=== PATIENT | female | born 2000 | race American Indian/Alaskan Native ===

== ENCOUNTER 2020-07-16 15:57 | Inpatient (IN) | payer OTHER ==
[2020-07-16] MEDS ORDERED: OXYTOCIN 10 UNIT/1 ML INJ IM PRN (17:22)
[2020-07-16] MEDS ORDERED: AMPICILLIN/NS 2 GM/100 ML 2 GM/100 ML BAG IV ONE (17:22)
[2020-07-16] MEDS ORDERED: TERBUTALINE 1 MG/1 ML INJ SUB-Q PRN (17:22)
[2020-07-16] MEDS ORDERED: fentaNYL 100 MCG/2 ML INJ IV PRN (17:22)
[2020-07-16] MEDS ORDERED: MINERAL OIL 30 ML ORAL LIQD PO PRN (17:22)
[2020-07-16] MEDS ORDERED: LIDOCAINE (2%) 20 MG/1 ML VIAL 20 ML MDV INFILTRATI ONE (17:22)
[2020-07-16] MEDS ORDERED: ePHEDrine SULFATE 50 MG/1 ML INJ IV PRN ×2 (17:22→22:18)
[2020-07-16 17:38] LABS: Hematocrit 36.9 % (30.3-42.9); Hemoglobin 12.8 gm/dl (10.1-14.3); Mean Corpuscular HGB Conc 35 % (30-34); Mean Corpuscular Volume 87 fl (79-97); Platelet Count 187 K/mm3 (140-440); Red Blood Count 4.24 M/mm3 (3.65-5.03); Red Cell Distribution Width 13.8 % (13.2-15.2)
[2020-07-16] MEDS: LACTATED RINGERS 1,000 ML IV SCH ×2 (17:55→18:58)
[2020-07-16] MEDS ORDERED: OXYTOCIN DRIP 30 UNITS/500 ML BAG IV SCH (18:00)
--- NOTE | 2020-07-16 18:53 | History and Physical Report ---
History of Present Illness Date of examination: 07/16/20 Date of admission: 07/16/20 15:58 Chief complaint: C/o SROM with cl fluid. Admits to active FM and denies uc. History of present illness: 20 y/o AA female presents to [facility] with c/o SROM cl fluid @ 2:30 pm. She initiated her pnc at [facility] at 9 4/7 wks. Preg has been uneventful. Hx reveals anemia, + GBS, sickle cell trait, uti, and Varicella NI. Pt was admitted to L&D for an augmentation of labor. Past History Past Medical History: other (anemia, sickle cell trait + GBS, Varicella NI, uti) Past Surgical History: no surgical history Family/Genetic History: none Social history: single - Obstetrical History Expected Date of Delivery: 07/17/20 Actual Gestation: 39 Week(s) 6 Day(s) : 1 Para: 0 Medications and Allergies Allergies Allergy/AdvReac Type Severity Reaction Status Date / Time No Known Allergies Allergy Verified 07/16/20 18:38 Home Medications Medication Instructions Recorded Confirmed Last Taken Type Ferrous Sulfate [Iron 325 MG] 325 mg PO DAILY 07/16/20 07/16/20 07/15/20 09:00 History Vit-Fe Fumar-FA [ 1 tab PO QDAY 07/16/20 07/16/20 07/15/20 09:00 History Vitamin] Active Meds: Active Medications Butorphanol Tartrate (Stadol) 2 mg IV Q2H PRN PRN Reason: Pain , Severe (7-10) Ephedrine Sulfate (Ephedrine Sulfate) 10 mg IV Q2M PRN PRN Reason: Hypotension Fentanyl (Sublimaze) 100 mcg IV Q2H PRN PRN Reason: Pain,Severe (7-10) LABOR PAIN Oxytocin/Sodium Chloride (Pitocin/Ns 30 Unit/500ml) 30 units in 500 mls @ 2 mls/hr IV TITR DANICA; Protocol Last Admin: 07/16/20 17:57 Dose: 2 ml/hr, 2 mls/hr Documented by: Lactated Ringer's (Lactated Ringers) 1,000 mls @ 125 mls/hr IV DIRECT DANICA Last Admin: 07/16/20 17:55 Dose: 125 mls/hr Documented by: Mineral Oil (Mineral Oil) 30 ml PO QHS PRN PRN Reason: Constipation Oxytocin (Pitocin) 10 unit IM ONCE PRN PRN Reason: Uterine Bleeding Terbutaline Sulfate (Brethine) 0.25 mg SUB-Q ONCE PRN PRN Reason: Hyperstimulation/Hypertonicity Review of Systems All systems: negative Eyes: deferred Ears, nose, mouth and throat: deferred Breasts: normal - Vital Signs Vital signs: Vital Signs Pulse BP 101 H 134/83 07/16/20 16:46 07/16/20 16:46 Temp Pulse Resp BP Pulse Ox 99 F 104 H 18 147/82 99 07/16/20 18:31 07/16/20 18:43 07/16/20 18:31 07/16/20 18:40 07/16/20 18:43 - Physical Exam Breasts: Positive: normal Cardiovascular: Regular rate Lungs: Positive: Clear to auscultation Abdomen: Positive: normal appearance, soft, normal bowel sounds, other (gravid) Genitourinary (Female): Positive: normal external genitalia, normal perenium Vulva: both: normal Vagina: Positive: normal moisture Uterus: Positive: enlarged, normal contour, other (gravid) Adnexa: both: normal Anus/Rectum: Positive: normal perianal skin Extremities: Positive: normal - Obstetrical FHR: auscultation normal, category 1 Uterine Contraction Monitor Mode: External Cervical Dilatation: 2 Cervical Effacement Percentage: 70 station: -2 Uterine Contraction Frequency (min): irreg Uterine Contraction Pattern: Irregular Uterine Tone Measurement Phase: Resting Uterine Contraction Intensity: Mild Results Result Diagrams: 07/16/20 16:55 Abnormal lab results 07/16/20 Range/Units 16:55 MCHC 35 H (30-34) % All other labs normal. Assessment and Plan A: IUP@ 39.6 wks SROM cl fluid GBS pos Anemia Varicella NI SS trait P: Admit to L&D Continuous monitoring GBS prophylaxis Varicella vaccine pp Pain med/Epidural prn Anticipate - Patient Problems (1) Term Current Visit: Yes Status: Acute (2) Positive GBS test Current Visit: Yes Status: Acute (3) Anemia Current Visit: Yes Status: Acute (4) Maternal varicella, non-immune Current Visit: Yes Status: Acute (5) Sickle cell trait Current Visit: Yes Status: Acute
[2020-07-16] MEDS ORDERED: NALOXONE 2 MG/2 ML INJ IV PRN (22:18)
[2020-07-16] MEDS ORDERED: DEXMEDETOMIDINE 200 MCG/2 ML VIAL IV ONE (22:24)
[2020-07-16] MEDS: AMPICILLIN/NS 1 GM/50 ML 1 GM/50 ML BAG IV SCH (22:48)
[2020-07-16] MEDS: BUTORPHANOL 2 MG/1 ML INJ IV PRN (22:52)
[2020-07-16] MEDS ORDERED: fentaNYL-BUPIV 2 MCG/ML-0.125% 200 MCG/100 ML BAG EPIDURAL SCH (23:00)
[2020-07-17] MEDS: LACTATED RINGERS 1,000 ML IV SCH ×3 (01:14→12:37)
[2020-07-17] MEDS: AMPICILLIN/NS 1 GM/50 ML 1 GM/50 ML BAG IV SCH ×6 (02:00→23:04)
[2020-07-17] MEDS: BUTORPHANOL 2 MG/1 ML INJ IV PRN (06:43)
[2020-07-17] MEDS ORDERED: DEXMEDETOMIDINE 200 MCG/2 ML VIAL IV ONE (09:49)
[2020-07-17] MEDS ORDERED: ePHEDrine SULFATE 50 MG/1 ML INJ IV PRN (10:27)
[2020-07-17] MEDS ORDERED: NALOXONE 2 MG/2 ML INJ IV PRN (10:27)
--- NOTE | 2020-07-17 10:29 | Anesthesia Consultation ---
Anesthesia Consult and Med Hx Date of service: 07/17/20 - Airway Anesthetic Teeth Evaluation: Good ROM Head & Neck: Adequate Mental/Hyoid Distance: Adequate Mallampati Class: Class I Intubation Access Assessment: Good - Pulmonary Exam CTA: Yes - Cardiac Exam Cardiac Exam: RRR - Pre-Operative Health Status ASA Pre-Surgery Classification: ASA2 Proposed Anesthetic Plan: Epidural - Pulmonary Hx Smoking: No Hx Asthma: No Hx Respiratory Symptoms: No SOB: No COPD: No Home Oxygen Therapy: No Hx Pneumonia: No Hx Sleep Apnea: No - Cardiovascular System Hx Hypertension: No Hx Coronary Artery Disease: No Hx Heart Attack/AMI: No Hx Angina: No Hx Percutaneous Transluminal Coronary Angioplasty (PTCA): No Hx Cardia Arrhythmia: No Hx Pacemaker: No Hx Internal Defibrillator: No Hx Valvular Heart Disease: No Hx Heart Murmur: No Hx Peripheral Vascular Disease: No - Central Nervous System Hx Neuromuscular Disorder: No Hx Seizures: No CVA: No Hx Back Pain: No Hx Psychiatric Problems: No - Gastrointestinal Hx Ulcer: No Hx Gastroesophageal Reflux Disease: No - Endocrine Hx Renal Disease: No Hx End Stage Renal Disease: No Hx Cirrhosis: No Hx Liver Disease: No Hx Insulin Dependent Diabetes: No Hx Non-Insulin Dependent Diabetes: No Hx Thyroid Disease: No Hx Hypothyroidism: No Hx Hyperthyroidism: No - Hematic Hx Anemia: No Hx Sickle Cell Disease: No - Other Systems Hx Alcohol Use: No Hx Substance Use: No Hx Cancer: No Hx Obesity: Yes
--- NOTE | 2020-07-17 10:32 | Progress Note ---
Labor Epidural - Labor Epidural Start Time: 10:05 Stop Time: 10:13 Performed by:: JENNIFER SÁNCHEZ Procedure: Patient is requesting a laboring epidural for laboring pain. Patient IDed, H&P reviewed, all questions and concerns were answered, and consent was signed. Timeout was performed at bedside. Patient in sitting position. Sterile prep and drape was performed. [5] ml of 1% lidocaine skin wheal at L[3]- L [4]. 18- gauge Tuohy epidural needle was advanced to loss of resistance with air technique to 7cm. Negative CSF negative blood via Tuohy needle. #27g Spinal needle clear, free flowing CSF, Pecedex 10 mcg. Epidural catheter advanced to [12] centimeters. [negative] Aspiration [negative] test dose. Sterile dressing applied. Patient tolerated procedure.
[2020-07-17] MEDS ORDERED: fentaNYL-BUPIV 2 MCG/ML-0.125% 200 MCG/100 ML BAG EPIDURAL SCH (11:00)
[2020-07-17] MEDS ORDERED: FAMOTIDINE 20 MG/2 ML INJ IV ONE ×2 (13:07→13:14)
[2020-07-17] MEDS ORDERED: BICITRA ORAL LIQD 30ML PO ONE (13:07)
[2020-07-17] MEDS ORDERED: METOCLOPRAMIDE 10 MG/2 ML INJ IV ONE (13:07)
[2020-07-17] MEDS ORDERED: NALOXONE 0.4 MG/1 ML INJ IV PRN ×3 (13:08→16:21)
[2020-07-17] MEDS ORDERED: HYDROmorphone 1 MG/1 ML INJ IV PRN (13:08)
[2020-07-17] MEDS ORDERED: ONDANSETRON 4 MG/2 ML INJ IV PRN ×3 (13:08→16:21)
--- NOTE | 2020-07-17 13:08 | Anesthesia Day of Surgery ---
Anesthesia Day of Surgery - Day of Surgery Patient Examined: Yes Patient H&P Reviewed: Yes Patient is NPO: Yes Beta Blockers: No Cardiac Clearance: No Pulmonary Clearance: No Aj's Test: N/A
[2020-07-17] MEDS ORDERED: ceFAZolin/Water 2 GM/20 ML 2 GM/20 ML SYRINGE IV ONE (13:11)
[2020-07-17] MEDS ORDERED: BICITRA ORAL LIQD 30ML ONE (13:14)
[2020-07-17] MEDS ORDERED: METOCLOPRAMIDE 10 MG/2 ML INJ ONE (13:14)
[2020-07-17] MEDS ORDERED: LIDOCAINE MPF (2%) 20 MG/1 ML VIAL 5 ML ONE (13:18)
--- NOTE | 2020-07-17 13:24 | Event Note ---
Date: 07/17/20 Prolonged deceleration for over 4 minutes minimal cervical change plan for operative delivery informed consent obtained NPO, business integration manager to OR for procedure CNikia Ayala MD
[2020-07-17] MEDS ORDERED: ceFAZolin/STERILE WATER 2 GM/20 ML SYRINGE IV ONE (13:55)
[2020-07-17] MEDS ORDERED: LACTATED RINGERS 1,000 ML IV SCH (14:00)
[2020-07-17] MEDS ORDERED: OXYTOCIN DRIP 30 UNITS/500 ML BAG IV SCH ×2 (14:00→17:00)
[2020-07-17] MEDS ORDERED: WATER FOR IRRIG STERILE 1,500 ML BOTTLE IR ONE (14:00)
[2020-07-17] MEDS ORDERED: SODIUM CHLORIDE 0.9% 500 ML 500 ML ONE (14:00)
[2020-07-17] MEDS ORDERED: ceFAZolin/Water 2 GM/20 ML 2 GM/20 ML SYRINGE IV NR (14:00)
[2020-07-17] MEDS ORDERED: ONDANSETRON 4 MG/2 ML INJ ONE (14:00)
[2020-07-17] MEDS ORDERED: SODIUM CHLORIDE 0.9% IRR 1,500 ML BOTTLE IR ONE (14:00)
[2020-07-17] MEDS ORDERED: OXYTOCIN 10 UNIT/1 ML INJ ONE ×2 (14:11→14:18)
[2020-07-17] MEDS ORDERED: METHYLERGONOVINE MALEATE 0.2 MG/ML VIAL IM ONE (14:14)
[2020-07-17] MEDS ORDERED: CARBOPROST TROMETHAMINE 250 MCG/1 ML INJ IM ONE (14:24)
[2020-07-17] MEDS ORDERED: propofoL 200 MG/20 ML VIAL IV ONE (14:33)
[2020-07-17] MEDS ORDERED: ROCURONIUM 50 MG/5 ML INJ IV ONE (14:40)
[2020-07-17] MEDS ORDERED: PHENYLEPHRINE/NS 1,000 MCG/10 ML SYRINGE (OR USE) IV ONE ×2 (14:40→15:36)
[2020-07-17] MEDS ORDERED: dexAMETHasone 20 MG/5 ML VIAL ONE (14:40)
[2020-07-17] MEDS ORDERED: fentaNYL 250 MCG/5 ML INJ ONE (14:41)
[2020-07-17] MEDS ORDERED: ceFAZolin 1 GM VIAL ONE (15:09)
[2020-07-17] MEDS ORDERED: MIDAZOLAM 2 MG/2 ML INJ ONE (15:11)
[2020-07-17] MEDS ORDERED: NEOSTIGMINE 10MG/10 ML INJ MDV ONE (15:59)
[2020-07-17] MEDS ORDERED: GLYCOPYRROLATE 0.4 MG/2 ML INJ ONE (15:59)
[2020-07-17] MEDS ORDERED: HYDROmorphone 1 MG/1 ML INJ ONE ×2 (16:14)
--- NOTE | 2020-07-17 16:16 | Procedure Note ---
OB Delivery Note - Section Preop diagnosis: nonreassuring FHR tracing Postop diagnosis: same section procedure: other ( hysterectomy ) Disposition: PACU Complications: uterine atony (requiring hysterectomy) Narrative: PREOPERATIVE DIAGNOSES: 1. Intrauterine gestation at 40.0 weeks,NRFHT,PPROM 2. Uterine atony. POSTOPERATIVE DIAGNOSES: 1. Intrauterine gestation at 40.0 weeks with suspected chorioamnionitis 2. Uterine atony. 3. Delivered. OPERATIONS PERFORMED: 1. Primary low transverse section. 2. Supracervical abdominal hysterectomy. SURGEON: Dr Delmy Ayala OFFICE MACHINE INSPECTOR: Dr Gil Veras ANESTHESIA: Epidural and general. ESTIMATED BLOOD LOSS:2000 mL. IV FLUIDS: 2000 mL crystalloid, 2 units PRBCs URINE OUTPUT: 600mL, clear COUNTS: Correctx2 INDICATIONS FOR OPERATION: The patient is a 20 year-old primigravida at 40.0 weeks gestation who presented with spontaneous onset of labor and PPROM. There was intolerance to labor with NRFHT and the decision was made for operative delivery. The Indications, risks, and benefits were discussed with the patient and her spouse. These risks include, but are not limited to bleeding, infection, damage to abdominal or pelvic organs or possible hemorrhage requiring transfusion. Consent was obtained. OPERATIVE FINDINGS: Viable male weigh [id number] with score of 9 at one minute and 9 at five minutes. Uterus was atonic. Tubes and ovaries appeared normal.Suspected chorioamnionitis: placenta sent topathology for analysis. DESCRIPTION OF OPERATION: After induction of epidural anesthesia, the patient was placed in the supine position with left lateral uterine displacement. The patient was prepped and draped in the usual sterile fashion. A Pfannenstiel skin incision was made with a scalpel and extended laterally sharply to the fascia, which was incised in the midline.The fascial incision was extended bilaterally. The fascia was bluntly and sharply dissected from the underlying rectus muscles. The recti were bluntly divided. The peritoneum was tented upward and entered sharply. The incision was extended superiorly and inferiorly. The vesicouterine peritoneum was tented upward and entered sharply. Then, the incision was extended bilaterally. A bladder flap was created by blunt dissection and protected behind the bladder blade. A low transverse uterine incision was made with a scalpel and extended bilaterally bluntly. The vertex was elevated to the level of the incision, where it was delivered with the aid of fundal pressure. The nose and mouth was bulb suctioned. The remainder of the infant was delivered atraumatically. The cord was doubly clamped and cut. The infant was handed to the awaiting nursery staff. The uterus was exteriorized and wrapped with a moist sponge. A dry sponge was used to curette the endometrial cavity. The uterus was vigorously massaged, as it was noted to be atonic. Methergine 0.2mg IMx2 doses, Hemabate 250mcg x1 dose, oxytocin 10mu IMx1 dose and cytotec 1mg NE given to control atony with no success. The uterine incision was closed in two layers using 0 chromic suture in a running locked fashion with second layer in an imbricating fashion. Additional hztsoc-zq-lhvfh suture was used as needed for hemostasis Uterine massage was continued with no response. In fact, the uterus was noted to be boggier and more atonic and was enlarging in size. Continued uterus massage revealed no response.The uterus became more and more boggy and persistently enlarged. The uterine massage and direct uterine pressure were continued throughout. Decision was made to proceed with a B-Porras suture. This was performed initially using number 1 Vicryl. As the suture was cinched down, it tore through the lower uterine segment. It was tied in situ and a frvytm-oa-vzqph suture was used for hemostasis at the site where the suture had torn through. The uterus continued to enlarge despite all attempts to control atony. At this point total EBL was 1300ml. Patient was hemodynamically stable. At this time, decision was made to proceed with hysterectomy for persistent uterine atony unresponsive to conservative management. Dr Veras was called to the OR immediately. The abdominal incision was extended cephalad to above the umbilicus with a scalpel. The left round ligament was grasped, doubly clamped, cut, and doubly ligated. Note that throughout the hysterectomy, 0 Vicryl sutures were used and all pedicles were doubly ligated. The right round ligament was similarly clamped, cu t, and ligated. The left utero-ovarian ligament was then doubly clamped, cut, and doubly ligated. Additional clamps were placed down the mesosalpinx to the level of the uterine vessels. A similar procedure was performed on the right utero-ovarian ligament and along the right mesosalpinx and broad ligament, to the level of the uterine vessels. The left uterine artery was then clamped, cut, and doubly ligated. A similar procedure was performed on the right uterine artery. Decision was made at this point to perform a supracervical hysterectomy. Large Aura clamps are placed across the right and left sides of the cervix, meeting at the midpoint. A scissors was used to excise the uterus, which was passed off the operative field. Interrupted [id number]-uq-wscti sutures of 0 Vicryl were used to close the cervix. Once the cervical closure was hemostatic, the remaining pedicles were re- examined. The pelvis was irrigated. Hemostasis of all pedicles and the cervical closure was reconfirmed. Hemoblast was placed over the cervical stump to serve as an adhesion barrier. The vertical incision was closed with 0 loop PDS- to encompass all layers of the anterior abdominal wall. The pfannensteil fascia was closed using 0 Vicryl in a running fashion. The subcuticular structures were closed with )-vicryl interrupted sutures and the pfannensteil incisionclsoed with monocryl and the vertical extension skin closed with stapels. The skin was irrigated. Hemostasis was achieved with electrocautery. A sterile dressing was applied. The patient did receive 2 grams of Ancef preoperatively and 1gm intrao peratively as well as two units PRBC's. She will recover in PACU and CCU. Dr Verdugo consulted intraoperatively. DISPOSITION: The patient returned to the postanesthesia care unit extubated and in stable condition. Her partner was notified of the indication for the procedure, her stable condition and the plan of care fo recovery. All sponge, needle and instrument counts correctx2 EBL 2000ml. Lisa Ayala MD
[2020-07-17] MEDS ORDERED: LANOLIN/ZINC/DIMETHICONE (LANSINOH) 7 GM TP PRN (16:21)
[2020-07-17] MEDS ORDERED: MORPHINE 2 MG/1 ML INJ IV PRN (16:21)
[2020-07-17] MEDS ORDERED: ACETAMINOPHEN 325 MG TAB PO PRN (16:21)
[2020-07-17] MEDS ORDERED: WITCH HAZEL/ GLYCERIN PAD TP PRN (16:21)
[2020-07-17] MEDS ORDERED: HYDROcodone/ACETAMINOPHEN 5-325 MG TAB PO PRN (16:21)
[2020-07-17] MEDS ORDERED: MAGNESIUM HYDROXIDE (MOM) ORAL LIQD UDC PO PRN (16:21)
[2020-07-17] MEDS ORDERED: diphenhydrAMINE 50 MG/ML VIAL IV PRN (16:21)
[2020-07-17] MEDS ORDERED: PROMETHAZINE 25 MG RECT SUPP PR PRN (16:21)
[2020-07-17] MEDS ORDERED: MORPHINE 4 MG/1 ML INJ IV PRN (16:21)
[2020-07-17] MEDS ORDERED: METOCLOPRAMIDE 10 MG/2 ML INJ IV PRN (16:21)
[2020-07-17 17:00] LABS: Hematocrit 38.2 % (30.3-42.9); Hemoglobin 13.1 gm/dl (10.1-14.3)
[2020-07-17] MEDS ORDERED: LACTATED RINGERS 1,000 ML ONE (17:05)
[2020-07-17] MEDS: HYDROmorphone/NS 6 MG/30 ML PCA INJ IV SCH (19:28)
[2020-07-18] MEDS: AMPICILLIN/NS 1 GM/50 ML 1 GM/50 ML BAG IV SCH ×3 (02:00→10:07)
[2020-07-18] MEDS: LACTATED RINGERS 1,000 ML IV SCH (03:01)
[2020-07-18 06:01] LABS: Hematocrit 28.6 % (30.3-42.9); Hemoglobin 10.1 gm/dl (10.1-14.3)
--- NOTE | 2020-07-18 09:02 | Consultation ---
History of Present Illness - Reason for Consult Consult date: 07/18/20 Post Management Requesting physician: EDI JUDGE - History of Present Illness 20 y/o female who developed hemorrhage post , had to have hysterectomy for life saving bleeding. Called by OB to watch patient in ICU overnight. HgB has been stable, no acute evidence of active bleeding. Hgb this am is 10. Patient awake and alert. On [employer] Pump. Per patient pad only changed once. abdominal dressing is good. Remainder is negative. Past History Social history: single Medications and Allergies Allergies Allergy/AdvReac Type Severity Reaction Status Date / Time No Known Allergies Allergy Verified 07/16/20 18:38 Home Medications Medication Instructions Recorded Confirmed Last Taken Type Ferrous Sulfate [Iron 325 MG] 325 mg PO DAILY 07/16/20 07/16/20 07/15/20 09:00 History Vit-Fe Fumar-FA [ 1 tab PO QDAY 07/16/20 07/16/20 07/15/20 09:00 History Vitamin] Active Meds: Active Medications Acetaminophen (Tylenol) 650 mg PO Q4H PRN PRN Reason: Fever >100.5/AYOUB Hydrocodone Bitart/Acetaminophen ([place] 5/325) 1 each PO Q6H PRN PRN Reason: Pain, Moderate (4-6) Butorphanol Tartrate (Stadol) 2 mg IV Q2H PRN PRN Reason: Pain , Severe (7-10) Last Admin: 07/17/20 06:43 Dose: 2 mg Documented by: Diphenhydramine HCl (Benadryl) 25 mg IV Q4H PRN PRN Reason: Itching Ephedrine Sulfate (Ephedrine Sulfate) 10 mg IV Q2M PRN PRN Reason: Hypotension Fentanyl (Sublimaze) 100 mcg IV Q2H PRN PRN Reason: Pain,Severe (7-10) LABOR PAIN Hydromorphone HCl (Dilaudid) 0.5 mg IV Q5M PRN PRN Reason: BREAK Hydromorphone/Sodium Chloride (Dilaudid Model Maker Plaster 6mg/30ml) 0 mg IV DIRECT DANICA; Protocol Last Admin: 07/17/20 19:28 Dose: 0.2 mg Documented by: Lactated Ringer's (Lactated Ringers) 1,000 mls @ 125 mls/hr IV DIRECT DANICA Last Admin: 10/10/20 03:01 Dose: 125 mls/hr Documented by: Ampicillin Sodium (Ampicillin/Ns 1 Gm/50 Ml) 1 gm in 50 mls @ 100 mls/hr IV Q4HR DANICA; Protocol Last Admin: 07/18/20 06:19 Dose: 100 mls/hr Documented by: Fentanyl/Bupivacaine/Sodium Chlor (Fentanyl-Bupiv 2 Mcg/Ml-0.125%) 200 mcg in 100 mls @ 12 mls/hr EPIDURAL TITR DANICA; Protocol Lactated Ringer's (Lactated Ringers) 1,000 mls @ 2,250 mls/hr IV PREOP DANICA Stop: 07/18/20 14:27 Oxytocin/Sodium Chloride (Pitocin/Ns 30 Unit/500ml) 30 units in 500 mls @ 40 mls/hr IV TITR DANICA; Protocol Magnesium Hydroxide (Milk Of Magnesia) 30 ml PO QHS PRN PRN Reason: Constip Unrelieved By Senna Metoclopramide HCl (Reglan) 10 mg IV Q6H PRN PRN Reason: N/V if NPO. Mineral Oil (Mineral Oil) 30 ml PO QHS PRN PRN Reason: Constipation Morphine Sulfate (Morphine) 2 mg IV Q4H PRN PRN Reason: Pain, Moderate (4-6) Morphine Sulfate (Morphine) 4 mg IV Q4H PRN PRN Reason: Pain , Severe (7-10) Multi-Ingredient Ointment (Lansinoh) 1 applic TP PRN PRN PRN Reason: dryness/cracking Naloxone HCl (Naloxone) 0.1 mg IV Q2MIN PRN PRN Reason: Res Rate </= 8 or 02 SAT < 92% Ondansetron HCl (Zofran) 4 mg IV Q8H PRN PRN Reason: N/V unrelieved by Reglan Oxytocin (Pitocin) 10 unit IM ONCE PRN PRN Reason: Uterine Bleeding Promethazine HCl (Phenergan) 25 mg SC Q6H PRN PRN Reason: N/V IF NPO AND NO IV ACCESS Simethicone (Mylicon) 80 mg PO Q6H PRN PRN Reason: Gas pain Sodium Chloride (Sodium Chloride Flush Syringe 10 Ml) 10 ml IV PRN NR Stop: 07/18/20 16:59 Last Admin: 07/17/20 23:05 Dose: 10 ml Documented by: Terbutaline Sulfate (Brethine) 0.25 mg SUB-Q ONCE PRN PRN Reason: Hyperstimulation/Hypertonicity Witch Pretty/Glycerin (Tucks Pad) 1 each TP PRN PRN PRN Reason: Hemorrhoids/cleansing/soothing Review of Systems All systems: negative Exam - Constitutional Vitals: Temp Pulse Resp BP Pulse Ox 98 F 92 H 12 104/48 98 07/18/20 08:00 07/18/20 08:45 07/18/20 08:45 07/18/20 08:45 07/18/20 08:45 General appearance: Present: no acute distress, well-nourished - EENT Eyes: Present: PERRL, EOM intact ENT: hearing intact, clear oral mucosa, dentition normal - Neck Neck: Present: supple, normal ROM - Respiratory Respiratory effort: normal Respiratory: bilateral: CTA - Cardiovascular Rhythm: other (sinus tach) Heart Sounds: Present: S1 & S2 - Extremities Extremities: no ischemia - Abdominal General gastrointestinal: Present: deferred - Rectal Rectal Exam: deferred - Integumentary Integumentary: Present: clear, warm, dry Results - Labs CBC & Chem 7: 07/18/20 04:40 Labs: Abnormal lab results 07/16/20 07/18/20 Range/Units 16:55 04:40 Hct 28.6 L D (30.3-42.9) % Crossmatch See Detail Assessment and Plan 20 y/o with hemorrhage, s/p hysterectomy to correct hemorrhage, now hemodynamically stable. 1. Suggest repeat CBC later today 2. [employer] per OB 3. No further critical care needs 4. Will transfer to mother/baby
--- NOTE | 2020-07-18 10:12 | Progress Note ---
Assessment and Plan primary c/section for NRFHT foolowed by uterine atony requiring hysterectomy as life saving measure Plan: doing well hemodynamically stable transfer to mother/baby continue routine postop care continue MARBLE CUTTER OPERATOR and martines unitil tomorrow advance diet as tolerated, wound start soft diet this evening daily labs Lisa Ayala MD Subjective - Subjective Date of service: 07/18/20 Principal diagnosis: SP hysterectomy Interval history: Patient AAOx3 Understands intraoperative course, understands she had a hysterectomy. We contacted FOB and patient's mother via Facetime during exam. Overnight patient's pain was well controlled via MARBLE CUTTER OPERATOR Martines: adequate urine output Postop Hb 10 after loss of 2 L intraop with 2units PRBCs replacement Wound dressing removed: incison C/D/I Fundus firm minimal VB noted on peripad Objective - Vital Signs Latest vital signs: Vital Signs Temp Pulse Pulse Resp BP Pulse Ox 07/18/20 09:28 18 07/18/20 08:45 92 H 12 104/48 98 07/18/20 08:31 96 H 19 121/55 98 07/18/20 08:15 99 H 16 105/47 97 07/18/20 08:00 98 F 101 H 96 H 17 102/49 99 07/18/20 07:45 100 H 16 109/61 98 07/18/20 07:30 117 H 16 109/61 98 07/18/20 07:28 16 07/18/20 07:15 104 H 18 116/53 99 07/18/20 07:00 98 H 18 107/44 99 07/18/20 06:45 107 H 16 106/50 98 07/18/20 06:30 107 H 17 114/54 99 07/18/20 06:15 104 H 17 108/54 100 07/18/20 06:00 109 H 14 125/64 98 07/18/20 05:45 100 H 17 112/52 99 07/18/20 05:30 109 H 19 119/66 98 07/18/20 05:15 91 H 16 125/63 99 07/18/20 05:00 110 H 17 107/55 98 07/18/20 04:45 97 H 13 117/71 99 07/18/20 04:30 101 H 18 117/55 99 07/18/20 04:15 100 H 16 115/49 99 07/18/20 04:00 104 H 20 118/41 98 07/18/20 03:45 103 H 16 111/56 98 07/18/20 03:39 98.4 F 07/18/20 03:30 103 H 15 117/56 99 07/18/20 03:15 93 H 16 117/49 100 07/18/20 03:00 112 H 15 110/58 99 07/18/20 02:45 111 H 19 101/61 98 07/18/20 02:30 111 H 15 97/54 98 07/18/20 02:15 105 H 17 111/57 98 07/18/20 02:00 114 H 14 116/55 98 07/18/20 01:45 110 H 19 104/54 99 07/18/20 01:30 106 H 18 119/56 99 07/18/20 01:15 112 H 17 105/53 99 07/18/20 01:00 102 H 12 111/59 99 07/18/20 00:45 107 H 12 111/58 98 07/18/20 00:30 105 H 24 111/58 98 07/18/20 00:15 104 H 17 114/60 99 07/18/20 00:00 107 H 18 115/63 97 07/17/20 23:45 112 H 22 114/64 98 07/17/20 23:42 98.8 F 07/17/20 23:31 102 H 15 98/49 98 07/17/20 23:15 104 H 16 116/69 99 07/17/20 23:00 105 H 15 124/68 99 07/17/20 22:45 107 H 17 119/68 99 07/17/20 22:30 103 H 17 117/65 99 07/17/20 22:15 105 H 15 117/66 98 07/17/20 22:00 104 H 16 118/71 98 07/17/20 21:45 92 H 14 112/68 100 07/17/20 21:30 101 H 17 108/68 99 07/17/20 21:15 104 H 16 112/71 99 07/17/20 21:00 104 H 15 123/75 99 07/17/20 20:45 100 H 16 115/67 98 07/17/20 20:30 98 H 16 117/69 98 07/17/20 20:15 101 H 14 112/68 98 07/17/20 20:04 98.4 F 07/17/20 20:00 99 H 15 113/65 98 07/17/20 19:45 104 H 14 112/77 98 07/17/20 19:30 100 H 16 112/77 99 07/17/20 19:15 95 H 14 111/69 100 07/17/20 19:00 102 H 16 111/69 100 07/17/20 18:45 102 H 16 113/72 100 07/17/20 18:30 95 H 15 113/72 100 07/17/20 18:15 95 H 14 123/73 100 07/17/20 18:00 97 H 96 H 15 114/73 100 07/17/20 17:45 95 H 13 113/67 100 07/17/20 17:30 92 H 14 113/64 100 07/17/20 17:05 98.8 F 94 H 14 109/63 99 07/17/20 16:50 94 H 16 108/64 100 07/17/20 16:45 95 H 16 107/60 99 07/17/20 16:40 94 H 15 105/59 98 07/17/20 16:35 97.9 F 95 H 15 114/57 98 07/17/20 13:34 95 H 100 07/17/20 13:29 101 H 100 07/17/20 13:28 100 H 110/57 07/17/20 13:24 102 H 100 07/17/20 13:22 107 H 51 L 07/17/20 13:20 111/54 07/17/20 13:19 104 H 100 07/17/20 13:14 88 100 07/17/20 13:09 97 H 100 07/17/20 13:08 104 H 134/63 07/17/20 13:04 103 H 100 07/17/20 12:59 85 147/79 100 07/17/20 12:54 82 100 07/17/20 12:49 99 H 137/74 100 07/17/20 12:44 85 100 07/17/20 12:40 88 136/78 07/17/20 12:39 95 H 100 07/17/20 12:38 81 124/70 07/17/20 12:34 79 131/70 100 07/17/20 12:29 86 100 07/17/20 12:24 85 100 07/17/20 12:20 86 115/69 07/17/20 12:19 88 100 07/17/20 12:14 91 H 100 07/17/20 12:09 98 H 100 07/17/20 12:08 92 H 110/63 07/17/20 12:04 93 H 100 07/17/20 11:59 104 H 99 07/17/20 11:58 90 128/70 07/17/20 11:54 87 100 07/17/20 11:49 85 100 07/17/20 11:48 86 124/68 07/17/20 11:44 86 99 07/17/20 11:39 89 119/62 96 07/17/20 11:34 93 H 98 07/17/20 11:29 90 99 07/17/20 11:28 89 123/62 07/17/20 11:24 97.6 F 87 99 07/17/20 11:19 83 120/66 98 07/17/20 11:14 91 H 100 07/17/20 11:09 89 100 07/17/20 11:08 86 118/59 07/17/20 11:04 86 100 07/17/20 10:59 90 111/60 100 07/17/20 10:54 87 99 07/17/20 10:49 92 H 105/57 97 07/17/20 10:44 95 H 98 07/17/20 10:39 96 H 98 07/17/20 10:38 96 H 91/52 07/17/20 10:34 98 H 98 07/17/20 10:29 97 H 98 07/17/20 10:26 98 H 94/54 07/17/20 10:24 97 H 111/57 98 07/17/20 10:22 100 H 112/55 07/17/20 10:20 102 H 114/59 07/17/20 10:19 101 H 98 07/17/20 10:18 104 H 123/64 07/17/20 10:16 101 H 129/71 07/17/20 10:14 98 H 131/69 100 Intake and Output 07/17/20 07/18/20 07/18/20 23:59 07:59 15:59 Intake Total 1200 100 Output Total 900 1200 Balance 300 -1100 Intake: IV 1200 100 AMPICILLIN/NS 1 GM/50 ML 100 100 1 gm In 50 ml @ 100 mls/ hr IV Q4HR [facility] Rx#: [id number] Lactated Ringers 1,000 ml 1000 @ 125 mls/hr IV DIRECT [facility] Rx#:[id number] Output: Urine 900 1200 Indwelling 200 Void 1200 Other: Total, Output Amount 1200 Estimated Blood Loss 2,000 - Exam Breasts: Present: deferred Lungs: Present: Clear to auscultation Abdomen: Present: normal bowel sounds Uterus: Present: firm, fundal height at umbilicus Extremities: Present: normal Deep Tendon Reflex Grade: Normal +2 Incision: Present: normal, dry - Labs Labs: Abnormal lab results 07/16/20 07/18/20 Range/Units 16:55 04:40 Hct 28.6 L D (30.3-42.9) % Crossmatch See Detail
[2020-07-18] MEDS ORDERED: SODIUM CHLORIDE 0.9% 1000 ML 1,000 ML ONE (12:20)
[2020-07-18 13:14] LABS: INR 1.07 (0.87-1.13)
[2020-07-18] MEDS: HYDROmorphone/NS 6 MG/30 ML PCA INJ IV SCH (17:13)
[2020-07-18] MEDS: guaiFENesin 100 MG/5 ML ORAL LIQD PO PRN (17:16)
[2020-07-18 18:10] LABS: Hematocrit 24.1 % (30.3-42.9); Hemoglobin 8.3 gm/dl (10.1-14.3); Mean Corpuscular HGB Conc 35 % (30-34); Mean Corpuscular Volume 87 fl (79-97); Platelet Count 112 K/mm3 (140-440); Red Blood Count 2.76 M/mm3 (3.65-5.03); Red Cell Distribution Width 13.9 % (13.2-15.2)
[2020-07-18] MEDS ORDERED: SODIUM CHLORIDE 0.9% 500 ML 500 ML IV ONE ×2 (18:27→18:29)
--- NOTE | 2020-07-18 18:33 | Event Note ---
Date: 07/18/20 Hb 8.3 PTL 112 +ve tachycardia with HR up to 125 current vital signs: BP 116/63, HR 105 suspect patient had early DIC intraoperatively no active bleeding plan for transfusion 2 units PRBCs(total of 4) and one unit Platelets. monitor closely Lisa Ayala MD
[2020-07-18] MEDS ORDERED: SODIUM CHLORIDE 0.9% 1000 ML 1,000 ML IV SCH (20:45)
[2020-07-19] MEDS: guaiFENesin 100 MG/5 ML ORAL LIQD PO PRN (02:55)
--- NOTE | 2020-07-19 09:23 | Progress Note ---
Subjective - Subjective Date of service: 07/19/20 Principal diagnosis: SP hysterectomy Interval history: POD#2 AAOx3 Urine output 24 hours 1750ml Hb: 8.3 Total fluids and blood replacement: 4 units PRBCS, one unit PTL pending [employer] adequate for pain control Plan for today: up to chair, continue [employer] and martines catheter d/c abx minimize fluids continue routine PP care Lisa Ayala MD Objective - Vital Signs Latest vital signs: Vital Signs Temp Pulse Resp BP BP Pulse Ox 07/19/20 07:49 98.1 F 89 18 114/74 100 07/19/20 06:00 18 07/19/20 04:16 98.5 F 97 H 20 125/63 99 07/19/20 04:00 18 07/19/20 03:46 98.2 F 96 H 20 127/74 99 07/19/20 03:16 98.5 F 100 H 18 125/66 98 07/19/20 02:46 98.6 F 97 H 20 126/70 99 07/19/20 02:16 98.7 F 95 H 20 128/78 99 07/19/20 02:01 98.6 F 102 H 18 122/74 98 07/19/20 02:00 18 07/19/20 01:41 98.7 F 104 H 20 123/76 97 07/19/20 01:31 98.9 F 97 H 20 113/66 99 07/19/20 01:01 98.8 F 98 H 18 118/63 98 07/19/20 00:31 98.3 F 106 H 18 125/84 99 07/19/20 00:01 98.6 F 107 H 16 122/73 98 07/19/20 00:00 16 07/18/20 23:31 98.4 F 109 H 18 128/73 99 07/18/20 23:01 98.5 F 114 H 18 121/80 07/18/20 22:46 98.3 F 112 H 20 113/77 98 07/18/20 22:00 18 07/18/20 20:00 20 07/18/20 15:13 98.7 F 121 H 18 110/60 94 07/18/20 12:12 98.1 F 107 H 18 106/54 97 07/18/20 11:10 98.0 F 100 H 16 122/70 98 07/18/20 09:45 105 H 16 116/68 99 07/18/20 09:31 103 H 12 127/61 98 07/18/20 09:28 18 Intake and Output 07/18/20 07/19/20 07/19/20 23:59 07:59 15:59 Intake Total 0 740 Output Total 1150 1750 Balance -1150 -1010 Intake: Oral 240 Blood Product 0 500 Leukoreduced Red Blood 0 250 Cells Unit [id number] Leukoreduced Red Blood 250 Cells Unit [id number] Output: Urine 1150 1750 Indwelling Catheter 1150 1750 Other: Total, Intake Amount 120 Total, Output Amount 450 550 - Labs Labs: Abnormal lab results 07/16/20 07/18/20 07/18/20 Range/Units 16:55 12:40 17:37 RBC 2.76 L (3.65-5.03) M/mm3 Hgb 8.3 L (10.1-14.3) gm/dl Hct 24.1 L (30.3-42.9) % MCHC 35 H (30-34) % Plt Count 112 L (140-440) K/mm3 Fibrinogen 484 H (211-480) mg/dl Crossmatch See Detail
[2020-07-19] MEDS ORDERED: ACETAMINOPHEN 325 MG TAB PO PRN (09:41)
[2020-07-19 11:03] LABS: Hematocrit 35.3 % (30.3-42.9); Hemoglobin 12.1 gm/dl (10.1-14.3); Mean Corpuscular HGB Conc 34 % (30-34); Mean Corpuscular Volume 87 fl (79-97); Platelet Count 123 K/mm3 (140-440); Red Blood Count 4.06 M/mm3 (3.65-5.03)
[2020-07-19] MEDS: SIMETHICONE 80 MG CHEW TAB PO PRN ×2 (11:21→18:01)
[2020-07-19 11:28] LABS: Alanine Aminotransferase 10 units/L (7-56); Albumin 2.3 g/dL (3.9-5); BUN/Creatinine Ratio 10; Blood Urea Nitrogen 3 mg/dL (7-17); Calcium 9.1 mg/dL (8.4-10.2); Hemolysis Index 5
[2020-07-19] MEDS ORDERED: fentaNYL 100 MCG/2 ML INJ IV PRN (21:38)
--- NOTE | 2020-07-20 13:40 | Progress Note ---
Assessment and Plan - Patient Problems (1) Status post emergency hysterectomy Current Visit: Yes Status: Acute Plan to address problem: PT is stable POD3. Once pt can void on her own and is comfortable with po pain meds, she can go home. F/U at end of the week for staple removal. Subjective - Subjective Date of service: 07/20/20 (POD 3) Principal diagnosis: SP hysterectomy Interval history: PT is doing well today s/p receiving PRBCs. PT with no anemic sxs. Hgn >12. Positive flatus, positive reg diet, positive ambulation. PT just had martines removed earlier today so no void yet. [employer] changed to oral pain meds today. Objective - Vital Signs Latest vital signs: Vital Signs Temp Pulse Resp BP BP Pulse Ox 07/20/20 08:00 20 07/20/20 07:42 98.2 F 100 H 20 122/68 93 07/20/20 04:52 97.6 F 99 H 20 125/73 93 07/20/20 02:35 18 07/20/20 00:58 98.4 F 95 H 18 118/63 97 07/20/20 00:55 18 07/19/20 20:35 97.8 F 88 18 104/65 97 07/19/20 19:20 18 07/19/20 18:05 18 07/19/20 16:45 18 07/19/20 16:04 98.1 F 95 H 18 127/91 91 07/19/20 13:50 18 Intake and Output 07/19/20 07/20/20 07/20/20 23:59 07:59 15:59 Intake Total 300 270 360 Output Total 1999 600 300 Balance -1700 -330 60 Intake: Oral 300 270 360 Output: Urine 1999 600 300 Indwelling 500 150 Indwelling Catheter 1500 450 100 Void 200 Other: Total, Intake Amount 200 150 240 Total, Output Amount 200 150 100 # Voids Indwelling Catheter 1 - Exam Incision: Present: normal, dry, intact
[2020-07-20 14:57] LABS: Hematocrit 37.6 % (30.3-42.9); Hemoglobin 12.9 gm/dl (10.1-14.3); Mean Corpuscular HGB Conc 34 % (30-34); Mean Corpuscular Volume 87 fl (79-97); Platelet Count 177 K/mm3 (140-440); Red Blood Count 4.31 M/mm3 (3.65-5.03); Red Cell Distribution Width 13.9 % (13.2-15.2)
[2020-07-20 15:22] LABS: Alanine Aminotransferase 12 units/L (7-56); Albumin 2.8 g/dL (3.9-5); Blood Urea Nitrogen 4 mg/dL (7-17); Calcium 8.9 mg/dL (8.4-10.2); Hemolysis Index 17
[2020-07-20 15:25] LABS: BUN/Creatinine Ratio 8
--- NOTE | 2020-07-20 17:58 | Discharge Summary ---
Providers - Providers Date of Admission: 07/16/20 15:58 Attending physician: TRESSA TERESA JR, MD Primary care physician: TRESSA TERESA JR, MD Hospitalization Disposition: DC-30 STILL A PATIENT Plan - Discharge Medications Prescriptions: Ibuprofen [Motrin 800 MG tab] 800 mg PO Q8HR PRN #30 tablet PRN Reason: Pain , Severe (7-10) HYDROcodone/APAP 5-325 [[place] 5-325 mg TAB] 1 each PO Q6H PRN #30 tablet PRN Reason: Pain, Moderate (4-6) - Provider Discharge Summary Additional instructions: [] Smoking cessation referral if applicable(refer to patient education folder for contact #) [] Refer to [facility] Booklet Call your doctor immediately for: * Fever > 100.5 * Heavy vaginal bleeding ( >1 pad per hour) * Severe persistent headache * Shortness of breath * Reddened, hot, painful area to leg or breast * Drainage or odor from incision. * Keep incision clean and dry at all times and follow doctor's instructions regarding bathing/showering - Follow up plan Follow up: TRESSA TERESA JR, MD [Primary Care Provider] - 3 Days Forms: [facility] Discharge Summary
[2020-07-20 23:12] VITALS: BP 114/70
[2020-07-21] MEDS ORDERED: IBUPROFEN 800 MG TAB PO PRN (11:30)
== END 2020-07-20 22:30 | disposition home or self-care (01) | DRG 787 ==
LOC: TRG 15:57 → LD 15:58 → IMCU 07-17 17:14 → OB 07-18 10:24
PROVIDERS: ADMIT Obstetrics & Gynecology; ATTEND Obstetrics & Gynecology
PROC: 10D00Z1 Extraction of Products of Conception, Low, Open Approach (ICD-10-PCS; principal; 2020-07-17)
PROC: 0UT90ZL Resection of Uterus, Supracervical, Open Approach (ICD-10-PCS; 2020-07-17)
PROC: 30233N1 Transfusion of Nonautologous Red Blood Cells into Peripheral Vein, Percutaneous Approach (ICD-10-PCS; 2020-07-17)
PROC: 30233R1 Transfusion of Nonautologous Platelets into Peripheral Vein, Percutaneous Approach (ICD-10-PCS; 2020-07-19)
DX: O99.824 Streptococcus B carrier state complicating childbirth (principal); O98.52 Other viral diseases complicating childbirth; D57.3 Sickle-cell trait; O62.2 Other uterine inertia; Z20.828 Contact with and (suspected) exposure to other viral communicable diseases; O76 Abnormality in fetal heart rate and rhythm complicating labor and delivery; O99.214 Obesity complicating childbirth; E66.9 Obesity, unspecified; O99.02 Anemia complicating childbirth; Z3A.39 39 weeks gestation of pregnancy; Z37.0 Single live birth; Z79.899 Other long term (current) drug therapy
CPT/HCPCS: 36415; 80053; 85014; 85018; 85027; 85384; 85610; 85730; 86592; 86850; 86900; 86901; 86920; 88307; G0378; J0290; J0595; J0690; J1100; J1170; J2210; J2250; J2370; J2405; J2590; J2704; J2710; J2765; J3010; J3490; J7030; J7040; J7120; P9016; P9035; U0003-CS